=== PATIENT | male | born 1955 | race Caucasian/White ===

== ENCOUNTER 2024-06-23 02:30 | Emergency (ER) | payer OTHER ==
[~2024-06-23] VITALS: Ht 182.9 cm; Wt 86.6 kg
[2024-06-23 02:43] VITALS: BP 170/100; PULSE 78; RESP 18; TEMP 98.8; O2SAT 98
[2024-06-23] MEDS ORDERED: NAPR-337 PO (04:30)
[2024-06-23] MEDS: KETOROLAC 60 MG/2 ML VIAL IM ONE (04:48)
[2024-06-23 05:32] VITALS: BP 160/82; PULSE 67; RESP 18; TEMP 98.8; O2SAT 98
== END 2024-06-23 05:32 | disposition home or self-care (01) ==
LOC: MED 02:30
DX: S22.42XA Multiple fractures of ribs, left side, initial encounter for closed fracture (principal); E78.5 Hyperlipidemia, unspecified; Z79.899 Other long term (current) drug therapy; W18.39XA Other fall on same level, initial encounter; Y93.89 Activity, other specified; Y92.89 Other specified places as the place of occurrence of the external cause; Y99.8 Other external cause status
CPT/HCPCS: 71250; 96372; 99285; J1885